=== PATIENT | female | born 1960 | race Caucasian/White ===

== ENCOUNTER → 2022-12-18 | Day surgery (SDC) | payer BC ==
[~2022-12-18] MED LIST: Acetaminophen/oxyCODONE 325-5 MG Tab PO PRN; Bupivacaine 0.25%/EPINEPHrine 1:200,000 30 ML SDV ONE; Bupivacaine 0.5%/EPINEPHrine 1:200,000 50 ML MDV ONE; Dexamethasone 4 MG/ML 5 ML MDV ONE; HYDROmorphone 0.5 MG/0.5 ML Syringe IVPUSH PRN; HYDROmorphone 0.5 MG/0.5 ML Syringe ONE; Ketorolac 30 MG/ML SDV ONE; Lidocaine 1% 2 ML ONE; Midazolam 1 MG/ML 2 ML SDV ONE; Ondansetron 4 MG/2 ML SDV IVPUSH PRN; Ondansetron 4 MG/2 ML SDV ONE; Propofol 200 MG/20 ML SDV ONE; Scopolamine 1.5 MG Transdermal Patch TOP ONE; Sodium Chloride 0.9% 10 ML Syringe FLUSH PRN; Sodium Chloride 0.9% 10 ML Syringe FLUSH SCH; ceFAZolin 2 GM Vial ONE; ePHEDrine 50 MG/ML SDV ONE; fentaNYL 100 MCG/2 ML SDV IVPUSH PRN; fentaNYL 250 MCG/5 ML SDV ONE
[2022-12-18 09:44] LABS: APPEARANCE,URINE CLEAR (Clear); BILIRUBIN,URINE NEGATIVE (Negative); COLOR,URINE YELLOW (Yellow); GLUCOSE,URINE NEGATIVE (Negative); KETONES,URINE NEGATIVE (Negative); LEUKOCYTE ESTERASE,URINE NEGATIVE (Negative); NITRITE,URINE NEGATIVE (Negative); OCCULT BLOOD,URINE NEGATIVE (Negative); PH,URINE 8.5 (5.0-8.0); PROTEIN,URINE 1+ (Negative); UROBILINOGEN,URINE 0.2 (0.2-1.0)
[2022-12-18] MEDS: Lactated Ringers 1,000 ML IV SCH ×2 (09:50→14:40)
== END | disposition home or self-care (01) ==
LOC: JD.SDS 09:27
PROVIDERS: ATTEND Obstetrics & Gynecology
DX: N81.3 Complete uterovaginal prolapse (principal); N81.6 Rectocele; D25.9 Leiomyoma of uterus, unspecified; N88.8 Other specified noninflammatory disorders of cervix uteri; D27.1 Benign neoplasm of left ovary; D27.0 Benign neoplasm of right ovary; E78.00 Pure hypercholesterolemia, unspecified; G43.909 Migraine, unspecified, not intractable, without status migrainosus; M81.0 Age-related osteoporosis without current pathological fracture; Z90.79 Acquired absence of other genital organ(s); Z98.51 Tubal ligation status; Z88.5 Allergy status to narcotic agent; Z79.82 Long term (current) use of aspirin; Z79.899 Other long term (current) drug therapy; Z87.891 Personal history of nicotine dependence
CPT/HCPCS: 36415; 57260; 58262; 81003; 86850; 86900; 86901; A9270; J0690; J1100; J1170; J1885; J2250; J2405; J2704; J3010; J7120; 00944; J3490

== ENCOUNTER 2023-04-30 10:44 | Day surgery (SDC) | payer BC ==
[~2023-04-30 10:44] MED LIST changes: -Acetaminophen/oxyCODONE 325-5 MG Tab PO PRN; -Bupivacaine 0.25%/EPINEPHrine 1:200,000 30 ML SDV ONE; -Bupivacaine 0.5%/EPINEPHrine 1:200,000 50 ML MDV ONE; -Dexamethasone 4 MG/ML 5 ML MDV ONE; -HYDROmorphone 0.5 MG/0.5 ML Syringe IVPUSH PRN; -HYDROmorphone 0.5 MG/0.5 ML Syringe ONE; -Ketorolac 30 MG/ML SDV ONE; +Lactated Ringers 1,000 ML IV SCH; -Lidocaine 1% 2 ML ONE; -Midazolam 1 MG/ML 2 ML SDV ONE; -Ondansetron 4 MG/2 ML SDV IVPUSH PRN; -Ondansetron 4 MG/2 ML SDV ONE; -Propofol 200 MG/20 ML SDV ONE; +Scopalamine 1mg/3day Transdermal Patch TRDERM SCH; -Scopolamine 1.5 MG Transdermal Patch TOP ONE; -ceFAZolin 2 GM Vial ONE; -ePHEDrine 50 MG/ML SDV ONE; -fentaNYL 100 MCG/2 ML SDV IVPUSH PRN; -fentaNYL 250 MCG/5 ML SDV ONE
[2023-04-30 11:17] LABS: APPEARANCE,URINE CLEAR (Clear); BILIRUBIN,URINE NEGATIVE (Negative); COLOR,URINE YELLOW (Yellow); GLUCOSE,URINE NEGATIVE (Negative); KETONES,URINE TRACE (Negative); LEUKOCYTE ESTERASE,URINE NEGATIVE (Negative); NITRITE,URINE NEGATIVE (Negative); OCCULT BLOOD,URINE NEGATIVE (Negative); PH,URINE 6.5 (5.0-8.0); PROTEIN,URINE TRACE (Negative); UROBILINOGEN,URINE 0.2 (0.2-1.0)
[2023-04-30 11:28] LABS: RBC,URINE 0-5 /hpf (0-5); WBC,URINE 0-5 /hpf (0-5)
[2023-04-30 11:29] LABS: BACTERIA,URINE FEW /hpf (FEW); MUCUS,URINE MANY /hpf (FEW)
[2023-04-30] MEDS ORDERED: Bupivacaine 0.25% 10 ML SDV ONE (11:47)
[2023-04-30] MEDS ORDERED: EPINEPHrine 1 MG/ML SDV ONE (11:47)
[2023-04-30] MEDS ORDERED: Lidocaine 1% 10 ML MDV ONE (11:47)
[2023-04-30] MEDS ORDERED: Sodium Chloride 0.9% 50 ML SDV ONE (11:48)
[2023-04-30] MEDS ORDERED: Midazolam 1 MG/ML 2 ML SDV ONE (12:00)
[2023-04-30] MEDS ORDERED: Lidocaine 1% 8 ML ONE (12:00)
[2023-04-30] MEDS ORDERED: Propofol 200 MG/20 ML SDV ONE (12:01)
[2023-04-30] MEDS ORDERED: fentaNYL 250 MCG/5 ML SDV ONE (12:01)
[2023-04-30] MEDS ORDERED: ceFAZolin 2 GM Vial ONE (12:22)
[2023-04-30] MEDS ORDERED: Ondansetron 4 MG/2 ML SDV ONE (12:31)
[2023-04-30] MEDS ORDERED: HYDROmorphone 0.5 MG/0.5 ML Syringe IVPUSH PRN (12:43)
[2023-04-30] MEDS ORDERED: fentaNYL 100 MCG/2 ML SDV IVPUSH PRN (12:43)
[2023-04-30] MEDS ORDERED: Dexamethasone 4 MG/ML 5 ML MDV ONE (12:45)
[2023-04-30] MEDS ORDERED: Ketorolac 30 MG/ML SDV ONE (12:59)
[2023-04-30] MEDS ORDERED: Lactated Ringers 1,000 ML ONE (13:03)
[2023-04-30] MEDS ORDERED: oxyCODONE 5 MG Tab PO PRN (15:26)
== END 2023-04-30 16:10 | disposition home or self-care (01) ==
LOC: JD.SDS 10:44
PROVIDERS: ATTEND Obstetrics & Gynecology
DX: N81.10 Cystocele, unspecified (principal); N39.3 Stress incontinence (female) (male); G43.909 Migraine, unspecified, not intractable, without status migrainosus; E78.00 Pure hypercholesterolemia, unspecified; M81.0 Age-related osteoporosis without current pathological fracture; Z88.5 Allergy status to narcotic agent; Z79.899 Other long term (current) drug therapy
CPT/HCPCS: 57240; 57287; 81001; A9270; J0171; J0690; J1885; J2250; J2405; J2704; J3010; J3490; J7120; J1100